=== PATIENT | female | born 1995 | race African-American/Black ===

== ENCOUNTER 2017-03-27 03:43 | Emergency (ER) | payer OTHER ==
[2017-03-27 04:36] VITALS: BP 136/79; PULSE 88; TEMP 98.3; BMI 34.3
--- NOTE | 2017-03-27 04:47 | PDOC ---
History of Present Illness - General Chief Complaint: Ear Problem Stated Complaint: EAR AND THROAT PAIN Time Seen by Provider: 03/27/17 04:20 History Source: Patient Exam Limitations: No Limitations - History of Present Illness Initial Comments: 03/27/17 04:44 21yo Female patient presents to ED c/o left ear pain that began 2 days ago and not getting better. She deny any other complaints at this time. Timing/Duration: reports: getting worse Severity: reports: moderate Past History - Travel Traveled outside of the country in the last 30 days: No Close contact w/someone who was outside of country & ill: No - Past Medical History Allergies/Adverse Reactions: Allergies Allergy/AdvReac Type Severity Reaction Status Date / Time No Known Allergies Allergy Verified 03/27/17 04:35 Home Medications: Ambulatory Orders Amoxicillin - [Amoxicillin 500mg Capsule -] 500 mg PO BID #14 capsule 03/27/17 - Immunization History Immunization Up to Date: Yes - Psycho/Social/Smoking Cessation Hx Anxiety: No Suicidal Ideation: No Smoking History: Never smoked Have you smoked in the past 12 months: No Number of Cigarettes Smoked Daily: 0 Information on smoking cessation initiated: No Hx Alcohol Use: No Drug/Substance Use Hx: No Substance Use Type: None Review of Systems - Review of Systems Able to Perform ROS?: Yes Is the patient limited British proficient: No Constitutional: No: Chills, Fever HEENTM: Yes: Ear Pain. No: Ear Discharge, Hearing Loss, Throat Pain, Throat Swelling, Difficulty Swallowing, Mouth Swelling All Other Systems: Reviewed and Negative *Physical Exam - Vital Signs Last Vital Signs Temp Pulse Resp BP Pulse Ox 98.3 F 88 20 136/79 98 03/27/17 04:35 03/27/17 04:35 03/27/17 04:35 03/27/17 04:35 03/27/17 04:35 - Physical Exam General Appearance: Yes: Nourished, Appropriately Dressed. No: Apparent Distress, Mild Distress, Moderate Distress, Severe Distress HEENT: positive: EOMI, LAKESHIA, Normal ENT Inspection, Normal Voice, Symmetrical, Pharynx Normal, TM Erythema (Lt TM). negative: TMs Normal, Pharyngeal Erythema , Tonsillar Exudate, Tonsillar Erythema, Nasal Congestion, Rhinorrhea, TM Bulging, TM Dull Neck: positive: Trachea midline, Normal Thyroid, Supple. negative: Decreased range of motion, Stridor, Lymphadenopathy (R), Lymphadenopathy (L) Respiratory/Chest: positive: Lungs Clear, Normal Breath Sounds. negative: Chest Tender, Respiratory Distress, Accessory Muscle Use, Labored Respiration, Rapid RR Cardiovascular: positive: Regular Rhythm, Regular Rate Gastrointestinal/Abdominal: positive: Normal Bowel Sounds, Soft. negative: Distended, Guarding, Rebound, Tenderness Musculoskeletal: positive: Normal Inspection, Vertebral Tenderness Extremity: positive: Normal Inspection, Normal Range of Motion. negative: Pedal Edema, Swelling, Calf Tenderness, Erythema, Inflammation Integumentary: positive: Normal Color, Dry, Warm Neurologic: positive: enrollment manager II-XII NML intact, Fully Oriented, Alert, Normal Mood/ Affect, Normal Response, Motor Strength 5/5 *DC/Admit/Observation/Transfer Diagnosis at time of Disposition: Left ear pain - Discharge Dispostion Disposition: HOME Condition at time of disposition: Stable Admit: No - Prescriptions Prescriptions: Amoxicillin - [Amoxicillin 500mg Capsule -] 500 mg PO BID #14 capsule - Patient Instructions Printed Discharge Instructions: DI for Otitis Media (Middle Ear Infection)- Child Additional Instructions: FOLLOW UP WITH YOUR PRIMARY CARE PROVIDER NEEDED. TAKE MEDICATIONS PRESCRIBED. RETURN IF SYMPTOMS WORSEN OR ANY CONCERNS FOR FURTHER EVALUATION. Print Language: MALAYSIAN
[2017-03-27] MEDS ORDERED: IBUPROFEN 400 MG TABLET (FP) PO ONE ×2 (04:52→06:12)
[2017-03-27] MEDS ORDERED: AMOXICILLIN 500 MG CAPSULE (FP) PO ONE (04:52)
[2017-03-27] MEDS ORDERED: AMOXICILLIN 500 MG CAPSULE (FP) ONE (06:12)
== END 2017-03-27 06:23 | disposition home or self-care (01) ==
LOC: JER 03:43
DX: H66.92 Otitis media, unspecified, left ear (principal)
CPT/HCPCS: 99281-25

== ENCOUNTER 2018-11-29 22:28 | Emergency (ER) | payer OTHER ==
[2018-11-29 22:37] VITALS: BP 124/67; PULSE 95; TEMP 98.8; BMI 35.0
--- NOTE | 2018-11-30 01:04 | PDOC ---
*Physical Exam - Vital Signs Last Vital Signs Temp Pulse Resp BP Pulse Ox 98.8 F 95 H 18 124/67 100 11/29/18 22:34 11/29/18 22:34 11/29/18 22:34 11/29/18 22:34 11/29/18 22:34 Medical Decision Making - Medical Decision Making 11/30/18 01:03 Patient seen by the advanced practice provider under my direct supervision. Ancillary testing reviewed as necessary. I agree with plan as outlined by the advanced practice provider.
== END 2018-11-30 01:16 | disposition left against medical advice (07) ==
LOC: JER 22:28
DX: Z53.21 Procedure and treatment not carried out due to patient leaving prior to being seen by health care provider (principal)
CPT/HCPCS: 99281-25